=== PATIENT | female | born 1965 | race African-American/Black ===

== ENCOUNTER → 2021-04-14 | Outpatient (CLI) | payer BC ==
[2021-04-15 08:14] LABS: RHEUMATOID ARTHRITIS FACTOR <10.0 IU/mL (0.0-13.9)
== END ==
LOC: LAB 12:14
PROVIDERS: Nurse Practitioner Family
DX: M79.642 Pain in left hand (principal); M79.641 Pain in right hand; M79.672 Pain in left foot; M79.671 Pain in right foot; M19.072 Primary osteoarthritis, left ankle and foot; M19.071 Primary osteoarthritis, right ankle and foot; M19.042 Primary osteoarthritis, left hand; M19.041 Primary osteoarthritis, right hand; D89.9 Disorder involving the immune mechanism, unspecified; R76.8 Other specified abnormal immunological findings in serum
CPT/HCPCS: 36415; 73130; 73630; 82550; 83520; 84439; 84443; 85652; 86140; 86200; 86431